=== PATIENT | male | born 1980 | race Caucasian/White ===

== ENCOUNTER 2016-07-30 20:42 | Emergency (ER) | payer MEDICAID ==
[2016-07-30 21:11] VITALS: BP 159/77; PULSE 104; TEMP 99.3; BMI 33.0
--- NOTE | 2016-07-30 21:15 | EDPRACDOC ---
- General Information Stated Complaint: DIARRHEA Time Seen by Provider: 07/30/16 21:07 Information Source: Patient Home Medications: Home Medications Escitalopram Oxalate [Lexapro] 10 mg PO DAILY 08/07/14 Omeprazole 40 mg PO DAILY 08/07/14 Simvastatin 40 mg PO DAILY 08/07/14 Lisinopril [Prinivil] 10 mg PO DAILY 12/13/15 Ketoprofen 50 mg PO BID PRN #20 capsule 03/06/16 Dicyclomine HCl [Bentyl] 20 mg PO Q8H PRN #20 tab 07/30/16 Ondansetron HCl [Zofran] 4 mg PO Q8H PRN #15 tab 07/30/16 Allergies/Adverse Reactions: Allergies Allergy/AdvReac Type Severity Reaction Status Date / Time No Known Allergies Allergy Verified 03/06/16 21:33 - History of Present Illness Onset: 2 days HPI: Pt c/o diffuse abd pain with nausea and 10 episodes of watery diarrhea in 24 hours. Denies fever, cough, congestion, cp, sob, rash. Symptoms Occured: Reports: Spontaneous Duration: Reports: Since Onset Emesis: Denies: Bilious, Bloody, Coffee Grounds, Food Particles, O Recent: Reports: None Pain Quality: Reports: Cramping Pain Severity: Mild Pain Location: Reports: Diffuse Associated Signs and Symptoms: Reports: Nausea, Diarrhea Oral Intake: Normal Urinary Output: Normal ED Past Medical History - History Reviewed Yes Nurses notes reviewed and agree except as marked - Patient Medical History Neurological History: Reports: Seizures (as child) Cardiac History: Reports: Hypertension, Hypercholesterolemia GI/ History: Reports: Gastroesophageal Reflux Psychological History: Reports: Depression - Family Medical History Reports: Diabetes (mom). Denies: Hypertension, Cancer, Stroke, Cardiac Disorders - Social Medical History Smoking Status: Never smoker ETOH: None Substance Abuse: None EDM Review of Systems - Review of Systems Constitutional: No Symptoms Reported. negative: Fever, Chills, Weakness, Fatigue, Loss of Appetite Ears: No Symptoms Reported. negative: Pain, Hearing Loss, Drainage, Ear Pulling Throat: No Symptoms Reported. negative: Pain, Swelling Nose: No Symptoms Reported. negative: Congestion, Bleeding, Discharge, Injection, Swelling, Deformity, Ecchymosis, Tender, Abrasion, Laceration Mouth: No Symptoms Reported. negative: Pain, Drooling Respiratory: No Symptoms Reported. negative: Cough, Brassy Cough, Barky Cough, Shortness of Breath, Wheezing, Hemoptysis Cardiovascular: No Symptoms Reported. negative: Chest Pain, Palpitations, Syncope, Edema, Orthopnea, PND, Skin Mottling, Cyanosis Gastrointestinal: Diarrhea, Nausea, Pain Genitourinary: No Symptoms Reported. negative: Dysuria, Hematuria, Frequency, Discharge, Bleeding, Testicular Pain, Neurological: No Symptoms Reported. negative: Headache, Dizziness, Seizure, Numbness, Weakness, Speech Difficulty, Gait Difficulty Musculoskeletal: No Symptoms Reported. negative: Neck, Chestwall, Ribs, Back, Shoulder, Arm, Elbow, Forearm, Wrist, Hand, Pelvis, Hip, Femur, Knee, Leg, Ankle , Foot Integumentary: No Symptoms Reported. negative: Itching, Rash, Bruising, Wound Allergic/Immunologic: No Symptoms Reported. negative: Hives, Itching Hematologic: No Symptoms Reported. negative: Lymphadenopathy, Easy Bruising, Easy Bleeding Psychiatric: No Symptoms Reported. negative: Anxiety, Depression, Hallucinations, Insomnia, Suicidal - Physical Exam Constitutional: Alert Oriented to: Time, Person, Place Last recorded Vital Signs: Last Vital Signs Temp 99.3 F 07/30/16 21:10 Pulse 104 07/30/16 21:10 Resp 24 07/30/16 21:10 BP 159/77 07/30/16 21:10 Pulse Ox 97 07/30/16 21:10 Oxygen Pulse Oxygen Saturation 97 O2 Device Oxygen Flow Rate Fraction of Inspired Oxygen ( FIO2) - HEENT Head: Normal ( normocephalic) Eye Exam: Normal (PERRL, EOMI, Sclera white) Oropharynx: Normal (Pharynx:Moist without exudate,Gums-no swelling) Tympanic Membrane: Normal ENT EAC: Normal Nose: No Symptoms Reported (septum midline) Neck: Normal (FROM, trachea at midline) - Respiratory/Cardiovascular Respiratory: Normal - CTA (BBS clear to auscultation without adventitious sounds ) Cardiovascular: Normal (RRR without murmur, gallop or rub) - GI Auscultation: Increased Palpation: Normal (Soft,No rebound or guarding, non distended) Tenderness: Non tender - Musculoskeletal Back: Normal (Non-Tender) Extremities: Normal (Normal tone, Pulses 2+ No cyanosis or edema, FROM) - Integumentary Skin: Normal, Warm, Dry Lymphatics: Normal (no adenopathy) - Neurologic Memory Impaired: Normal Motor Function: Normal (Normal tone, Pulses 2+ No cyanosis or edema, FROM) Mood Description: Normal Perception: Normal - Differential Diagnosis Dehydration, Diarrhea Viral, Gastritis, Gastroenteritis, Diarrhea, Other ( influenza) Decision Time to Discharge: 21:15 - Departure Disposition: Home Condition: Good Final Diagnosis: Nausea Diarrhea Qualifiers: Diarrhea type: unspecified type Qualified Code(s): R19.7 - Diarrhea, unspecified Instructions: Acute Diarrhea (ED), Acute Nausea and Vomiting (ED) Education/Counseling Given To: Patient Education/Counseling Given Regarding: Diagnosis, Treatment, Follow Up Referrals: Ramiro Pat PA [Primary Care Provider] - One Week Prescriptions: Dicyclomine HCl [Bentyl] 20 mg PO Q8H PRN #20 tab PRN Reason: Pain Ondansetron HCl [Zofran] 4 mg PO Q8H PRN #15 tab PRN Reason: Nausea/Vomiting Additional Instructions: Drink sips of Gatorade every 2-3 minutes while awake. Do NOT drink large volumes of fluid at once. If you vomit, take the nausea-vomiting medicine prescribed, wait ~ 30 minutes, and restart the sipping process. Return to the Emergency Department if you think you are getting dehydrated, have persistent abdominal pain that is unrelenting, have worse or different symptoms, or any concerns.
== END 2016-07-30 21:25 | disposition home or self-care (01) ==
LOC: EDMC 20:42
DX: R19.7 Diarrhea, unspecified (principal)
CPT/HCPCS: 99282